=== PATIENT | male | born 1975 | race Two or more races ===

== ENCOUNTER → 2021-04-10 | Outpatient (CLI) | payer BC ==
[~2021-04-10] MED LIST: BAMLANIVIMAB (EUA) 700 MG, ETESEVIMAB (EUA) 1,400 MG in SODIUM CHLORIDE 0.9% 50 ML IVPB ONE; SODIUM CHLORIDE 0.9% 50 ML IVPB ONE; SODIUM CHLORIDE 0.9% 500 ML 500 ML in EMPTY BAG 1 BAG IV PRN
[2021-04-10 10:43] VITALS: BP 161/94; PULSE 58; RESP 16
[2021-04-10 10:59] VITALS: TEMP 98.4
== END ==
LOC: PROCWHC3 08:00 → EDSTATUS 10:00 → PROCWHC3 10:11 → EC 10:11 → PROCWHC3 12:30 → EC 12:30
PROVIDERS: ATTEND Nurse Practitioner Adult Health
DX: U07.1 COVID-19 (principal); E66.9 Obesity, unspecified; Z68.36 Body mass index [BMI] 36.0-36.9, adult
CPT/HCPCS: 96360; J3490